=== PATIENT | male | born 1955 | race Caucasian/White ===

== ENCOUNTER 2020-10-16 07:26 | Day surgery (SDC) | payer OTHER, BC ==
[2020-10-10 16:00] LABS: Absolute Lymphocytes (CBC) 2.6 K/uL (0.7-4.9); Basophils % 0.7 % (0-1.3); Hematocrit 44.9 % (39.6-49.0); Lymphocytes % 35.6 % (15.3-44.8); MPV 11.5 fL (7.6-11.3); RBC Red Blood Cell Count 5.09 M/uL (4.33-5.43)
[2020-10-10 16:03] LABS: Protime INR 0.94
[2020-10-10 16:12] LABS: Potassium 4.9 mmol/L (3.5-5.1)
--- NOTE | 2020-10-10 16:45 | RAD REPORT ---
EXAM DESCRIPTION: RAD - Chest Pa And Lat (2 Views) - 10/10/2020 3:48 pm CLINICAL HISTORY: preop, pending hydrocele repair COMPARISON: None TECHNIQUE: Frontal and lateral views of the chest were obtained. FINDINGS: The lungs are clear. Heart size is normal and central vasculature is within normal limit s. No pleural effusion or pneumothorax seen. No acute bony finding noted. Bilateral shoulder joint prostheses in place. No aortic abnormality. IMPRESSION: No acute cardiopulmonary process.
[2020-10-16] MEDS ORDERED: CEFAZOLIN/SWI 1gm 1 GM/10 ML SYR ONE (08:26)
[2020-10-16] MEDS ORDERED: Ringers Lactate 1,000 ML IV ONE (08:26)
[2020-10-16] MEDS ORDERED: BUPIVACAINE 0.25% PF 30 ML VIAL ONE (09:46)
[2020-10-16] MEDS ORDERED: BACITRACIN OINTMENT 15 GM TUBE TOP ONE (09:46)
[2020-10-16] MEDS ORDERED: MIDAZOLAM HCL 2 MG/2 ML INJ ONE (09:54)
[2020-10-16] MEDS ORDERED: propofoL 200 MG/20 ML VIAL IV ONE (09:54)
[2020-10-16] MEDS ORDERED: FENTANYL CITR 100 MCG/2 ML ONE (09:54)
[2020-10-16] MEDS ORDERED: LIDOCAINE 1% MPF 5 ML VIAL ONE (09:54)
[2020-10-16] MEDS ORDERED: KETOROLAC 30 MG/ML INJ ONE (10:19)
[2020-10-16] MEDS ORDERED: ONDANSETRON 4 MG/2 ML VIAL ONE (10:19)
[2020-10-16] MEDS ORDERED: CEFAZOLIN SODIUM 1 GM/VIAL ONE (10:25)
[2020-10-16] MEDS ORDERED: NS 0.9% VIAL 10 ML ONE ×2 (10:28)
[2020-10-16] MEDS ORDERED: EPHEDRINE SULF 50 MG/ML VIAL ONE (10:28)
[2020-10-16] MEDS ORDERED: HYDROCODONE/APAP 5/325 MG TAB PO PRN (11:10)
[2020-10-16] MEDS ORDERED: HYDROCODONE/APAP 5/325 MG TAB ONE (12:18)
--- NOTE | 2020-10-16 12:28 | OP ---
Surgeon: CRISTA MAYNARD Preoperative Diagnosis: Large left hydrocele. Postoperative Diagnosis: Large left hydrocele. Principles Procedure: Left scrotal exploration, excision of hydrocele sac, and Radha hydrocelecto my. Indication For Procedure: Mr. Kaba presented to the [facility] with a tense and somewhat tende r left moderately large sized hydrocele. This had increased in size over the last 3 months and was u ncomfortable form. He thus desired surgical management. A scrotal ultrasound was obtained preoperat ively confirming the lack of intratesticular or epididymal concerning mass lesion. Procedure In Detail: The patient was consented in the preoperative holding area before being transfe rred to the operative suite where general anesthesia was induced. He was given Ancef 1 g IV antimicr obial prophylaxis, and pneumo boots were provided for DVT prophylaxis. He was placed in the supine p osition, padded and secured to the table appropriately. His left hemiscrotum was shaved, prepped usi ng Betadine, and draped in standard fashion. A Angel line incision was identified in the superoinfe rior left hemiscrotum, and 0.25% Marcaine was instilled subcutaneously. The length of the incision w as approximately 3 cm. This was then incised using a 15 blade and deepened through the subcutaneous tissues and dartos layers using electrocautery. The hydrocele sac was then identified, and was disse cted free of its dartos attachments circumferentially. I then decompressed the significant volume of fluid from the hydrocele sac before delivering it out of the scrotal incision made. I then released the remaining dartos vascular attachments fulgurating as I went, and then opened the hydrocele sac a nteriorly and assessed the intrascrotal contents of the testis and the cord. While there was evidenc e of a slight varicocele of the cord, the testis was normal. There was an appendix testis noted, whi ch was fulgurated and removed to prevent torsion of that pain. The remainder of the testis was compl etely normal and apparent, and so the hydrocele sac was pulled around behind the testicle in the bone er described by Radha. A significant portion of the excess sac was removed, before the remainder of the sac was then plicated together using a running and every third locking suture of 3-0 Vicryl. This was also for hemostasis. Once this was performed, copious irrigation was performed and a carefu l search for bleeding within the intrascrotal tissues. Any bleeding vessels were pinpoint fulgurated . The testicle was then delivered back into the scrotal sac and 0.25% Marcaine was again instilled i n the subcutaneous tissues before closing the dartos layers using 3-0 Vicryl in a running fashion. T he skin and subcutaneous tissues were then closed using 3-0 chromic dipped in bacitracin. A fluff ga uze and scrotal support were applied and the patient was then awakened from general anesthesia before being transferred to a stretcher and then to the recovery room in good condition. Complications: None. Discharge Disposition: He will follow up in the [facility]rology Clinic with nurse practitioner, Taylor lucas the next 1-2 weeks for interval assessment. He subsequently will see me back in followup in appr oximately 4-6 weeks. I did clinical counselor them on the expected postoperative swelling that is typical and m ay take several weeks to resolve. A prescription for Snyder was sent to his pharmacy for pain managem ent postoperatively. He may certainly take sparing Motrin or Advil as an alternative for pain contro l if necessary. WR/MODL Voice ID: [id number] Report ID: [id number]
[2020-10-16 13:00] VITALS: BP 118/57; TEMP 97.6; O2SAT 99
== END 2020-10-16 12:15 | disposition home or self-care (01) ==
LOC: PRE 07:26
PROVIDERS: ATTEND Urology
PROC: 0VB70ZZ Excision of Left Tunica Vaginalis, Open Approach (ICD-10-PCS; principal; 2020-10-16 10:00)
DX: N43.3 Hydrocele, unspecified (principal); N50.82 Scrotal pain; Z20.822 Contact with and (suspected) exposure to COVID-19
CPT/HCPCS: 87088; 85025; 87086; 80048; 36415; 85610; 88302; 85730; 71046; 55040; U0003; J2704; J2250; J3010; J0690 ×2; J7120; J2405; 76870